=== PATIENT | female | born 1990 | race Caucasian/White ===

== ENCOUNTER → 2017-02-25 | Outpatient (CLI) | payer OTHER ==
--- NOTE | 2017-02-25 16:24 | US ---
EXAMINATION TYPE: US pelvic complete DATE OF EXAM: 02/25/2017 4:08 PM COMPARISON: NONE CLINICAL HISTORY: N93.8 Dysfunctional uterine bleeding. Abnormal vaginal bleeding since control implant replacement in November TECHNIQUE: Transabdominal (TA) Date of LMP: 02/19/2017 EXAM MEASUREMENTS: Uterus: 7.3 x 2.3 x 3.5 cm Endometrial Stripe: 0.3 cm Right Ovary: 2.6 x 1.7 x 2.2 cm Left Ovary: 2.3 x 1.2 x 2.5 cm 1. Uterus: Anteverted wnl 2. Endometrium: wnl 3. Right Ovary: wnl, dominant follicle 4. Left Ovary: wnl 5. Bilateral Adnexa: wnl 6. Posterior cul-de-sac: wnl No abnormality visualized within pelvis IMPRESSION: No significant abnormality seen.
== END | disposition home or self-care (01) ==
LOC: RADUSMAIN 15:52
PROVIDERS: ATTEND Obstetrics & Gynecology
DX: N93.8 Other specified abnormal uterine and vaginal bleeding (principal)
CPT/HCPCS: 76856

== ENCOUNTER 2019-12-15 07:56 | Emergency (ER) | payer OTHER ==
[2019-12-15 08:01] VITALS: BP 120/83; PULSE 88; RESP 16; TEMP 98.1
--- NOTE | 2019-12-15 08:21 | ED ---
General Adult HPI - General Chief complaint: Recheck/Abnormal Lab/Rx Stated complaint: Urinary issues Time Seen by Provider: 12/15/19 08:00 Source: patient, RN notes reviewed Mode of arrival: ambulatory Limitations: no limitations - History of Present Illness Initial comments: This is a 29-year-old female with a benign past history states she's been having dysuria and pain with urination since coming back from [place] earlier this winter. She states she's been on several courses of antibiotics including Augmentin and Cipro and Bactrim she's also been on Diflucan twice she states she's had about one week of relief since that time. She was seen by her [employer] and had a complete workup which was negative for evidence of STDs or pathology. She has been on different operations including pyridium without much relief. She's had no fevers chills nausea vomiting sweats she did recently have an implant removed and she had her are trying to get . Last menstrual period was approximately a month ago. She has no other complaints no other modifying factors at this time. She does say she has a family history of kidney stones as well as kidney cancer. No room hematological or connective tissue disorders. - Related Data Previous Rx's Medication Instructions Recorded Ibuprofen 800 mg PO Q6HR PRN #20 tablet 12/15/19 Phenazopyridine [Pyridium] 200 mg PO TID #15 tablet 12/15/19 Tamsulosin [Flomax] 0.4 mg PO DAILY #5 cap 12/15/19 Allergies Allergy/AdvReac Type Severity Reaction Status Date / Time citalopram [From Celexa] Allergy Rash/Hives Verified 12/15/19 08:02 Review of Systems ROS Statement: Those systems with pertinent positive or pertinent negative responses have been documented in the HPI. ROS Other: All systems not noted in ROS Statement are negative. Past Medical History Past Medical History: No Reported History History of Any Multi-Drug Resistant Organisms: None Reported Past Surgical History: Orthopedic Surgery Past Psychological History: No Psychological Hx Reported Smoking Status: Never smoker Past Alcohol Use History: Occasional Past Drug Use History: None Reported General Exam - General Exam Comments Initial Comments: This is a well-developed well-nourished awake alert oriented 2 female Limitations: no limitations General appearance: alert, in no apparent distress Head exam: Present: atraumatic, normocephalic, normal inspection Eye exam: Present: normal appearance, PERRL, EOMI. Absent: scleral icterus, conjunctival injection, periorbital swelling ENT exam: Present: normal exam, mucous membranes moist Neck exam: Present: normal inspection. Absent: tenderness, meningismus, lymphadenopathy Respiratory exam: Present: normal lung sounds bilaterally. Absent: respiratory distress, wheezes, rales, rhonchi, stridor Cardiovascular Exam: Present: regular rate, normal rhythm, normal heart sounds. Absent: systolic murmur, diastolic murmur, rubs, gallop, clicks GI/Abdominal exam: Present: soft, tenderness (Mild suprapubic tenderness palpation no guarding rebound masses or bruits), normal bowel sounds. Absent: distended, guarding, rebound, rigid Rectal exam: Present: deferred External exam: Present: other (The first this time secondary to the recent gynecological workup) Extremities exam: Present: normal inspection, full ROM, normal capillary refill. Absent: tenderness, pedal edema, joint swelling, calf tenderness Back exam: Present: normal inspection Neurological exam: Present: alert, oriented X3, CN II-XII intact Psychiatric exam: Present: normal affect, normal mood Skin exam: Present: warm, dry, intact, normal color. Absent: rash Course Vital Signs 12/15/19 07:57 Temperature 98.1 F Pulse Rate 88 Respiratory 16 Rate Blood Pressure 120/83 O2 Sat by Pulse 99 Oximetry Medical Decision Making - Medical Decision Making I did discuss the findings with the patient and her mother was present. Patient does have a upcoming appointment with Dr. King. In light of the findings on the CAT scan of the continued symptoms initially placed on NSAIDs as well as Pyridium and Flomax. - Lab Data Lab Results 12/15/19 12/15/19 Range/Units 08:10 08:10 Urine Color Light Yellow Urine Appearance Clear (Clear) Urine pH 6.0 (5.0-8.0) Ur Specific Wendel 1.009 (1.001-1.035) Urine Protein Negative (Negative) Urine Glucose (UA) Negative (Negative) Urine Ketones Negative (Negative) Urine Blood Negative (Negative) Urine Nitrite Negative (Negative) Urine Bilirubin Negative (Negative) Urine Urobilinogen <2.0 (<2.0) mg/dL Ur Leukocyte Esterase Negative (Negative) Urine HCG, Qual Not Detected (Not Detectd) - Radiology Data Radiology results: report reviewed (I did review the imaging and report or is evidence of a mild dilatation of left urinary collecting system. The findings may be consistent with a past ureteral stone. No other overt abnormality seen please see the complete report), image reviewed Disposition Clinical Impression: Dysuria Disposition: HOME SELF-CARE Condition: Good Additional Instructions: Medications sent here preferred pharmacy Prescriptions: Tamsulosin [Flomax] 0.4 mg PO DAILY #5 cap Ibuprofen 800 mg PO Q6HR PRN #20 tablet PRN Reason: Pain Phenazopyridine [Pyridium] 200 mg PO TID #15 tablet Is patient prescribed a controlled substance at d/c from ED?: No Referrals: Juan J Moreno MD [Primary Care Provider] - 1-2 days Michael King MD [STAFF PHYSICIAN] - 1-2 days
[2019-12-15 08:47] LABS: Appearance,Urine Clear (Clear); Bilirubin,Urine Negative (Negative); Blood,Urine Negative (Negative); Color,Urine Light Yellow; Glucose,Urine (UA) Negative (Negative); Ketones,Urine Negative (Negative); Leukocyte Esterase,Urine Negative (Negative); Nitrite,Urine Negative (Negative); Protein,Urine Negative (Negative); Specific Gravity,Urine 1.009 (1.001-1.035); Urobilinogen,Urine <2.0 mg/dL (<2.0)
--- NOTE | 2019-12-15 09:17 | CT ---
EXAMINATION TYPE: CT abdomen pelvis wo con DATE OF EXAM: 12/15/2019 HISTORY: urethral pain, and frequency/urgency of urination. Dysuria. Kidney stone suspected. CT DLP: 617.2 mGycm. Automated Exposure Control for Dose Reduction was Utilized. TECHNIQUE: CT scan of the abdomen and pelvis is performed without oral or IV contrast. COMPARISON: NONE FINDINGS: Within the limitations of a non-contrast study, the following observations are made. LUNG BASES: No significant abnormality is appreciated. LIVER/GB: No significant abnormality is appreciated. PANCREAS: Pancreas overall somewhat bulky without surrounding inflammatory change presumed normal lauryn iant. IgG4 related disease could be considered in the appropriate clinical setting. Correlate clinica lly. SPLEEN: No significant abnormality is seen. ADRENALS: Tiny nodularity centrally left adrenal gland favors benign lipid rich adenoma is of low den sity. KIDNEYS: Asymmetric mild right-sided pyelocaliectasis and at least proximal to mid mild right-sided h ydroureter without obstructing calculus or distal hydroureter clearly seen. No intraluminal calculus in bladder. No renal calculi identified bilaterally. No left-sided hydronephrosis. BOWEL: Normal-appearing appendix is seen ascending from the cecum which is slightly low-lying in the right upper pelvis. Suboptimal evaluation bowel without enteric contrast. Stomach poorly distended an d thus suboptimally evaluated. No suspicious small or large bowel dilatation is seen. Mild wall thick ening in the left lower quadrant near junction of left and sigmoid colon presumed product of poor dis tention, mild uncomplicated colitis felt less likely but not entirely excluded. GENITAL ORGANS: Anteverted uterus projects to left of midline. Some prominence of the lower uterine s egment/cervix axial image 124 noted should be correlated clinically with pelvic exam and possibly Pap smear. Both ovaries normal in size and the adnexa. LYMPH NODES: No greater than 1cm abdominal or pelvic lymph nodes are appreciated. A few prominent but subcentimeter lymph nodes throughout the left mid abdominal mesentery. OSSEOUS STRUCTURES: Moderate this space narrowing with vacuum disc phenomenon L5-S1 level. Posterior disc herniation seen at this level sagittal image 63. OTHER: No significant additional abnormality is seen. IMPRESSION: 1. Asymmetric mild right-sided hydronephrosis without obstructing calculus identified. Consider recen tly passed calculus as possible etiology. No definitive acute finding otherwise seen. Other findings as noted above.
[2019-12-15] MEDS ORDERED: IBUPROFEN 800 MG TAB PO STA (09:53)
[2019-12-15] MEDS ORDERED: TAMSULOSIN 0.4 MG CAP.ER.24H PO STA (09:53)
[2019-12-15] MEDS ORDERED: PHENAZOPYRIDINE 200 MG TAB PO STA (09:54)
== END 2019-12-15 10:23 | disposition home or self-care (01) ==
LOC: EC 07:56
DX: R30.0 Dysuria (principal); Z88.8 Allergy status to other drugs, medicaments and biological substances; Z80.51 Family history of malignant neoplasm of kidney; Z84.1 Family history of disorders of kidney and ureter
CPT/HCPCS: 74176; 81003; 81025; 99284

== ENCOUNTER 2019-12-29 13:05 | Emergency (ER) | payer OTHER ==
[2019-12-29 13:15] VITALS: RESP 18
[2019-12-29] MEDS ORDERED: METOCLOPRAMIDE 5 MG/ML 2 ML VIAL IVP STA (13:48)
[2019-12-29] MEDS ORDERED: diphenhydrAMINE 50 MG/ML 1 ML VIAL IVP STA (13:48)
[2019-12-29] MEDS ORDERED: DEXAMETHASONE SOD PHOSPHATE 10 MG/ML 1 ML VIAL IV STA (13:48)
[2019-12-29] MEDS ORDERED: MAGNESIUM SULFATE-D5W PMX 1 GM in DEXTROSE/WATER 1 100ML.BAG IVPB ONE (13:49)
[2019-12-29] MEDS ORDERED: ACETAMINOPHEN TAB 500 MG TAB PO STA (13:49)
[2019-12-29] MEDS ORDERED: KETOROLAC 30 MG/ML 1 ML VIAL IVP STA (13:49)
[2019-12-29 14:12] LABS: Basophils % (A) 1 %; Eosinophils % (A) 0 %; HCT 41.1 % (34.0-46.0); HGB 13.5 gm/dL (11.4-16.0); Lymphocytes # (A) 0.3 k/uL (1.0-4.8); Lymphocytes % (A) 4 %; MCH 28.4 pg (25.0-35.0); MCHC 32.9 g/dL (31.0-37.0); MCV 86.2 fL (80.0-100.0); Mean Platelet Volume 7.1; Monocytes # (A) 0.2 k/uL (0-1.0); Monocytes % (A) 3 %; Neutrophils # (A) 5.9 k/uL (1.3-7.7); Neutrophils % (A) 91 %; Platelet Count 200 k/uL (150-450); RBC 4.77 m/uL (3.80-5.40); RDW 12.9 % (11.5-15.5); WBC 6.5 k/uL (3.8-10.6)
--- NOTE | 2019-12-29 14:12 | ED ---
General Adult HPI - General Chief complaint: Headache Stated complaint: headache Time Seen by Provider: 12/29/19 13:10 Source: patient Mode of arrival: ambulatory Limitations: no limitations - History of Present Illness Initial comments: The patient is a 29-year-old female with past medical history of interstitial cystitis who recently had a cystoscopy on Friday presents the emergency room with reported fevers and headache. She states that she has had a cystoscopy on Friday by Dr. King. Denies that biopsies were taken. Reports that last night she began having fevers headache. Admits photophobia and neck stiffness. Denies cough or hemoptysis. States that she has taken 8 tablets of Motrin without improvement in her fevers. He was last taken around 2 AM this morning. She denies any chest pain or shortness of breath. No abdominal pain. Admits to burning with urination however states this is chronic for her. Denies hematuria or definitive voiding. Denies diarrhea or constipation. No sick contacts outside of the hospital with similar symptoms. Denies head trauma. There are no other alleviating, precipitating or modifying factors - Related Data Previous Rx's Medication Instructions Recorded Ibuprofen 800 mg PO Q6HR PRN #20 tablet 12/15/19 Phenazopyridine [Pyridium] 200 mg PO TID #15 tablet 12/15/19 Tamsulosin [Flomax] 0.4 mg PO DAILY #5 cap 12/15/19 Cephalexin [Keflex] 500 mg PO Q12HR #14 cap 12/29/19 Allergies Allergy/AdvReac Type Severity Reaction Status Date / Time citalopram [From Celexa] Allergy Rash/Hives Verified 12/29/19 13:10 Review of Systems ROS Statement: Those systems with pertinent positive or pertinent negative responses have been documented in the HPI. ROS Other: All systems not noted in ROS Statement are negative. Past Medical History Past Medical History: No Reported History History of Any Multi-Drug Resistant Organisms: None Reported Past Surgical History: Orthopedic Surgery Additional Past Surgical History / Comment(s): cystoscopy Past Psychological History: No Psychological Hx Reported Smoking Status: Never smoker Past Alcohol Use History: Occasional Past Drug Use History: None Reported General Exam Limitations: no limitations General appearance: alert, in no apparent distress Head exam: Present: atraumatic, normocephalic, normal inspection Eye exam: Present: normal appearance, PERRL, EOMI. Absent: scleral icterus, conjunctival injection, periorbital swelling ENT exam: Present: normal exam, mucous membranes moist Neck exam: Present: normal inspection, other (negative kernigs, negative brudzinski). Absent: tenderness, meningismus, lymphadenopathy Respiratory exam: Present: normal lung sounds bilaterally. Absent: respiratory distress, wheezes, rales, rhonchi, stridor Cardiovascular Exam: Present: normal rhythm, tachycardia, normal heart sounds. Absent: systolic murmur, diastolic murmur, rubs, gallop, clicks GI/Abdominal exam: Present: soft, normal bowel sounds. Absent: distended, tenderness, guarding, rebound, rigid Extremities exam: Present: normal inspection, full ROM, normal capillary refill. Absent: tenderness, pedal edema, joint swelling, calf tenderness Back exam: Present: normal inspection Neurological exam: Present: alert, oriented X3, CN II-XII intact Psychiatric exam: Present: normal affect, normal mood Skin exam: Present: warm, dry, intact, normal color. Absent: rash Course Vital Signs 12/29/19 12/29/19 12/29/19 13:10 13:25 14:18 Temperature 100.2 F H 101.5 F H Pulse Rate 120 H 101 H Respiratory 18 18 Rate Blood Pressure 122/79 128/80 O2 Sat by Pulse 97 96 Oximetry 12/29/19 12/29/19 15:05 15:37 Temperature 98.7 F 98.4 F Pulse Rate 97 89 Respiratory 18 18 Rate Blood Pressure 124/87 114/73 O2 Sat by Pulse 96 98 Oximetry Medical Decision Making - Medical Decision Making Upon arrival the patient was placed into room 19. A thorough history and physic al exam was performed. Peripheral IV was established. The patient was given 15 g of Toradol, 1 g of magnesium, 50 g of Benadryl, 10 mg Reglan and 10 mg of Decadron. Laboratory studies were conducted. The patient for CT of her brain as well as a chest x-ray. White blood cell count is normal at 6.5. Sodium 135. Glucose 115. Lactic acid 1.4. UA shows trace blood, 1+ bilirubin, trace leukocyte Estrace, 16 red blood cells, 6 white blood cells, occasional bacteria and occasional mucous. Influenza A and B are negative. Chest x-ray demonstrates no acute bony process. CT of the brain demonstrates no acute findings. The patient is reevaluated and she does have marked improvement in her vital signs. The patient also has improvement in her headache. I discussed the diagnosis, differential and treatment options. I did give the patient a dose of Rocephin. I did recommend a lumbar puncture as she does present with headache and fever. The patient refused stating she wanted to be discharged on antibiotics to see if her symptoms improve with clearance of her urinary tract infection. The risks and benefits were discussed with the patient. She is of sound mind and capable of making her own decisions. is at bedside and agrees to her decision. I did stress to the patient that she needs to return to the emergency room for any new or worsening symptoms. She is to take the antibiotic as directed. Use Motrin and Tylenol every 4 hours for fever. If the patient has worsening of her symptoms she needs to return for either inpatient treatment of her urinary tract infection or for evaluation of meningitis. The patient understood this. Otherwise she needs to follow up with her primary care doctor in 2-4 days. The patient understood this and she was discharged home in stable condition - Lab Data Result diagrams: 12/29/19 13:52 12/29/19 13:52 Lab Results 12/29/19 12/29/19 12/29/19 Range/Units 13:28 13:52 13:52 WBC 6.5 (3.8-10.6) k/uL RBC 4.77 (3.80-5.40) m/uL Hgb 13.5 (11.4-16.0) gm/dL Hct 41.1 (34.0-46.0) % MCV 86.2 (80.0-100.0) fL MCH 28.4 (25.0-35.0) pg MCHC 32.9 (31.0-37.0) g/dL RDW 12.9 (11.5-15.5) % Plt Count 200 (150-450) k/uL Neutrophils % 91 % Lymphocytes % 4 % Monocytes % 3 % Eosinophils % 0 % Basophils % 1 % Neutrophils # 5.9 (1.3-7.7) k/uL Lymphocytes # 0.3 L (1.0-4.8) k/uL Monocytes # 0.2 (0-1.0) k/uL Eosinophils # 0.0 (0-0.7) k/uL Basophils # 0.0 (0-0.2) k/uL Sodium (137-145) mmol/L Potassium (3.5-5.1) mmol/L Chloride (98-107) mmol/L Carbon Dioxide (22-30) mmol/L Anion Gap mmol/L BUN (7-17) mg/dL Creatinine (0.52-1.04) mg/dL Est GFR (CKD-EPI)AfAm (>60 ml/min/1.73 sqM) Est GFR (CKD-EPI)NonAf (>60 ml/min/1.73 sqM) Glucose (74-99) mg/dL Plasma Lactic Acid Moiz (0.7-2.0) mmol/L Calcium (8.4-10.2) mg/dL Total Bilirubin (0.2-1.3) mg/dL AST (14-36) U/L ALT (4-34) U/L Alkaline Phosphatase (38-126) U/L Total Protein (6.3-8.2) g/dL Albumin (3.5-5.0) g/dL Urine Color Dark Dukes Urine Appearance Cloudy H (Clear) Urine pH 6.0 (5.0-8.0) Ur Specific Mansfield 1.035 (1.001-1.035) Urine Protein 1+ H (Negative) Urine Glucose (UA) Negative (Negative) Urine Ketones Negative (Negative) Urine Blood Trace H (Negative) Urine Nitrite Negative (Negative) Urine Bilirubin 1+ H (Negative) Urine Urobilinogen 2.0 (<2.0) mg/dL Ur Leukocyte Esterase Trace H (Negative) Urine RBC 16 H (0-5) /hpf Urine WBC 6 H (0-5) /hpf Ur Squamous Epith Cells 10 H (0-4) /hpf Urine Bacteria Occasional H (None) /hpf Urine Mucus Occasional H (None) /hpf Urine HCG, Qual (Not Detectd) Influenza Type A RNA Not Detected (Not Detectd) Influenza Type B (PCR) Not Detected (Not Detectd) 12/29/19 12/29/19 12/29/19 Range/Units 13:52 13:52 13:52 WBC (3.8-10.6) k/uL RBC (3.80-5.40) m/uL Hgb (11.4-16.0) gm/dL Hct (34.0-46.0) % MCV (80.0-100.0) fL MCH (25.0-35.0) pg MCHC (31.0-37.0) g/dL RDW (11.5-15.5) % Plt Count (150-450) k/uL Neutrophils % % Lymphocytes % % Monocytes % % Eosinophils % % Basophils % % Neutrophils # (1.3-7.7) k/uL Lymphocytes # (1.0-4.8) k/uL Monocytes # (0-1.0) k/uL Eosinophils # (0-0.7) k/uL Basophils # (0-0.2) k/uL Sodium 135 L (137-145) mmol/L Potassium 3.8 (3.5-5.1) mmol/L Chloride 105 (98-107) mmol/L Carbon Dioxide 24 (22-30) mmol/L Anion Gap 6 mmol/L BUN 15 (7-17) mg/dL Creatinine 0.87 (0.52-1.04) mg/dL Est GFR (CKD-EPI)AfAm >90 (>60 ml/min/1.73 sqM) Est GFR (CKD-EPI)NonAf 90 (>60 ml/min/1.73 sqM) Glucose 115 H (74-99) mg/dL Plasma Lactic Acid Moiz 1.4 (0.7-2.0) mmol/L Calcium 8.5 (8.4-10.2) mg/dL Total Bilirubin 0.5 (0.2-1.3) mg/dL AST 27 (14-36) U/L ALT 18 (4-34) U/L Alkaline Phosphatase 55 (38-126) U/L Total Protein 6.3 (6.3-8.2) g/dL Albumin 3.4 L (3.5-5.0) g/dL Urine Color Urine Appearance (Clear) Urine pH (5.0-8.0) Ur Specific [place] (1.001-1.035) Urine Protein (Negative) Urine Glucose (UA) (Negative) Urine Ketones (Negative) Urine Blood (Negative) Urine Nitrite (Negative) Urine Bilirubin (Negative) Urine Urobilinogen (<2.0) mg/dL Ur Leukocyte Esterase (Negative) Urine RBC (0-5) /hpf Urine WBC (0-5) /hpf Ur Squamous Epith Cells (0-4) /hpf Urine Bacteria (None) /hpf Urine Mucus (None) /hpf Urine HCG, Qual Not Detected (Not Detectd) Influenza Type A RNA (Not Detectd) Influenza Type B (PCR) (Not Detectd) Disposition Clinical Impression: Fever, Headache, S/P cystoscopy Disposition: HOME SELF-CARE Condition: Stable Instructions (If sedation given, give patient instructions): Urinary Tract Infection in Women (ED) Additional Instructions: Please follow-up with your PCP in 2-4 days. Take Motrin and Tylenol alternating every 4 hours for fever control. Increase fluid intake. Return to the emergency room for any new or worsening symptoms Prescriptions: Cephalexin [Keflex] 500 mg PO Q12HR #14 cap Is patient prescribed a controlled substance at d/c from ED?: No Referrals: Juan J Moreno MD [Primary Care Provider] - 1-2 days Time of Disposition: 15:24
[2019-12-29 14:16] LABS: Appearance,Urine Cloudy (Clear); Bacteria,Urine Occasional /hpf; Bilirubin,Urine 1+ (Negative); Blood,Urine Trace (Negative); Color,Urine Dark Orange; Glucose,Urine (UA) Negative (Negative); Ketones,Urine Negative (Negative); Leukocyte Esterase,Urine Trace (Negative); Mucus,Urine Occasional /hpf; Nitrite,Urine Negative (Negative); Protein,Urine 1+ (Negative); RBC,Urine 16 /hpf (0-5); Specific Gravity,Urine 1.035 (1.001-1.035); Squamous Epithelial Cell,Urine 10 /hpf (0-4); WBC,Urine 6 /hpf (0-5)
[2019-12-29 14:25] LABS: ALT 18 U/L (4-34); AST 27 U/L (14-36); African American GFR (CKD) >90 (>60 ml/min/1.73 sqM); Albumin 3.4 g/dL (3.5-5.0); Alkaline Phosphatase 55 U/L (38-126); Anion Gap 6 mmol/L; Blood Urea Nitrogen 15 mg/dL (7-17); Calcium 8.5 mg/dL (8.4-10.2); Carbon Dioxide 24 mmol/L (22-30); Chloride 105 mmol/L (98-107); Glucose 115 mg/dL (74-99); Non-African American GFR(CKD) 90 (>60 ml/min/1.73 sqM); Potassium 3.8 mmol/L (3.5-5.1); Sodium 135 mmol/L (137-145); Total Bilirubin 0.5 mg/dL (0.2-1.3); Total Protein 6.3 g/dL (6.3-8.2)
[2019-12-29] MEDS ORDERED: cefTRIAXone IN SWFI 1,000 MG/10 ML SYRINGE IVP STA (14:30)
--- NOTE | 2019-12-29 14:51 | CT ---
EXAMINATION TYPE: CT brain wo con DATE OF EXAM: 12/29/2019 COMPARISON: None. HISTORY: Headache and fever. CT DLP: 1099.4 mGycm. Automated Exposure Control for Dose Reduction was Utilized. TECHNIQUE: CT scan of the head is performed without contrast. FINDINGS: There is no acute intracranial hemorrhage, mass effect, or midline shift identified. The ventricles and sulci are within normal limits in size. Rajput-white matter differentiation is maintai syl. Tiny eccentric fluid or mucosal thickening right sphenoid sinus otherwise paranasal sinuses are clear, latter is favored. Globes are intact bilaterally. IMPRESSION: Unremarkable study.
--- NOTE | 2019-12-29 14:52 | XR ---
EXAMINATION TYPE: XR chest 2V DATE OF EXAM: 12/29/2019 COMPARISON: NONE HISTORY: Headache and fever. TECHNIQUE: Frontal and lateral views of the chest are obtained. FINDINGS: There is no focal air space opacity, pleural effusion, or pneumothorax seen. The cardiac silhouette size is within normal limits. Underlying levoconvex scoliosis or positioning centered uppe r thoracic spine. IMPRESSION: No acute cardiopulmonary process.
[2019-12-29 15:44] VITALS: BP 114/73; PULSE 89; TEMP 98.4
== END 2019-12-29 15:37 | disposition home or self-care (01) ==
LOC: EC 13:05
DX: R51 Headache (principal); R50.9 Fever, unspecified; Z98.890 Other specified postprocedural states; N39.0 Urinary tract infection, site not specified; R00.0 Tachycardia, unspecified; H53.149 Visual discomfort, unspecified; Z88.8 Allergy status to other drugs, medicaments and biological substances; Z87.448 Personal history of other diseases of urinary system; Z53.29 Procedure and treatment not carried out because of patient's decision for other reasons
CPT/HCPCS: 99284; 96365; 96375 ×5; 36415; 80053; 83605; 85025; 81001; 81025; 87040; 87502; 71046; 70450; J1200; J1100; J2765; J0696; J1885; J3475

== ENCOUNTER → 2020-04-24 | Outpatient (CLI) | payer OTHER ==
[~2020-04-24] MED LIST: ONDANSETRON 4 MG/2 ML VIAL ONE
[2020-04-24 11:24] LABS: Basophils % (A) 0 %; Eosinophils # (A) 0.1 k/uL (0-0.7); Eosinophils % (A) 1 %; HCT 41.5 % (34.0-46.0); HGB 13.2 gm/dL (11.4-16.0); Lymphocytes # (A) 1.1 k/uL (1.0-4.8); Lymphocytes % (A) 15 %; MCH 27.7 pg (25.0-35.0); MCHC 31.8 g/dL (31.0-37.0); MCV 87.3 fL (80.0-100.0); Mean Platelet Volume 7.2; Monocytes # (A) 0.3 k/uL (0-1.0); Monocytes % (A) 5 %; Neutrophils # (A) 5.5 k/uL (1.3-7.7); Neutrophils % (A) 78 %; Platelet Count 264 k/uL (150-450); RBC 4.75 m/uL (3.80-5.40); RDW 13.7 % (11.5-15.5); WBC 7.1 k/uL (3.8-10.6)
== END | disposition home or self-care (01) ==
LOC: LABPAT 10:17
PROVIDERS: ATTEND Obstetrics & Gynecology
DX: Z01.818 Encounter for other preprocedural examination (principal)
CPT/HCPCS: 36415; 85025

== ENCOUNTER 2020-04-25 06:52 | Day surgery (SDC) | payer OTHER ==
[2020-04-24 12:07] VITALS: BMI 26.6
[~2020-04-25 06:52] MED LIST changes: +DEXAMETHASONE SOD PHOSPHATE 10 MG/ML 1 ML VIAL IV ONE; +HYDROmorphone 0.5 MG/0.5 ML SYRINGE IVP PRN; +LACTATED RINGERS 1,000 ML IV SCH; +MIDAZOLAM 2 MG/2 ML VIAL IV PRN; +ONDANSETRON 4 MG/2 ML VIAL IVP ONE; -ONDANSETRON 4 MG/2 ML VIAL ONE; +Pre Op ABX Message 1 EACH MISC MISCELLANE ONE; +SCOPOLAMINE 1.5MG/72HR PATCH TRANSDERM ONE
--- NOTE | 2020-04-25 07:11 | P.HPOB ---
History of Present Illness H&P Date: 04/25/20 Chief Complaint: Blighted ovum 29-year-old presents for suction D&C. She had 2 ultrasounds in my office that showed gestational sac with no pole in the gestational sac is not growing. Her beta-hCG is no longer rising. She's not having any bleeding or cramping. Review of Systems All systems: negative Constitutional: Denies chills, Denies fever Eyes: denies blurred vision, denies pain Ears, nose, mouth and throat: Denies headache, Denies sore throat Cardiovascular: Denies chest pain, Denies shortness of breath Respiratory: Denies cough Gastrointestinal: Denies abdominal pain, Denies diarrhea, Denies nausea, Denies vomiting Genitourinary: Denies dysuria, Denies hematuria Musculoskeletal: Denies myalgias Integumentary: Denies pruritus, Denies rash Neurological: Denies numbness, Denies weakness Psychiatric: Denies anxiety, Denies depression Endocrine: Denies fatigue, Denies weight change Past Medical History Past Medical History: No Reported History History of Any Multi-Drug Resistant Organisms: None Reported Past Surgical History: Orthopedic Surgery Additional Past Surgical History / Comment(s): Cystoscopy. Lt knee arthroscopy Past Anesthesia/Blood Transfusion Reactions: No Reported Reaction Past Psychological History: No Psychological Hx Reported Past Alcohol Use History: Rare Additional Past Alcohol Use History / Comment(s): Smoked on/off since age 17, < 1/2 ppd, quit 09/2019 Past Drug Use History: None Reported - Past Family History Mother Family Medical History: No Reported History Medications and Allergies Home Medications Medication Instructions Recorded Confirmed Type Pnv No.95/Ferrous Fum/Folic AC 1 each PO DAILY 04/24/20 04/25/20 History [ Multivitamin Tablet] Allergies Allergy/AdvReac Type Severity Reaction Status Date / Time citalopram [From Celexa] Allergy Rash/Hives Verified 04/24/20 11:51 Exam Osteopathic Statement: *. No significant issues noted on an osteopathic structural exam other than those noted in the History and Physical/Consult. Heart: Regular rate and rhythm Lungs: Clear to auscultation bilaterally Abdomen: Soft, nontender Extremities: Negative Homans sign Assessment and Plan (1) Blighted ovum Current Visit: Yes Status: Acute Code(s): O02.0 - BLIGHTED OVUM AND NONHYDATIDIFORM MOLE SNOMED Code(s): 54473785 Plan: 1. Suction D&C
[2020-04-25 07:24] LABS: Appearance,Urine Clear (Clear); Bilirubin,Urine Negative (Negative); Blood,Urine Negative (Negative); Color,Urine Yellow; Glucose,Urine (UA) Negative (Negative); Ketones,Urine Negative (Negative); Leukocyte Esterase,Urine Negative (Negative); Nitrite,Urine Negative (Negative); Protein,Urine Negative (Negative); Specific Gravity,Urine 1.024 (1.001-1.035); Urobilinogen,Urine <2.0 mg/dL (<2.0)
[2020-04-25] MEDS ORDERED: MIDAZOLAM 2 MG/2 ML VIAL IVP ONE (08:11)
[2020-04-25] MEDS ORDERED: KETOROLAC 30 MG/ML 1 ML VIAL ONE (08:11)
[2020-04-25] MEDS ORDERED: MIDAZOLAM 2 MG/2 ML VIAL ONE (08:11)
[2020-04-25] MEDS ORDERED: LIDOCAINE 1% INJ 10MG/ML (20 ML MDV) ONE (08:11)
[2020-04-25] MEDS ORDERED: fentaNYL (PF) 50 MCG/ML 2 ML AMP ONE (08:11)
[2020-04-25] MEDS ORDERED: PROPOFOL 10 MG/ML 20 ML VIAL IV ONE (08:11)
--- NOTE | 2020-04-25 08:39 | P.OP ---
Date of Procedure: 04/25/20 Preoperative Diagnosis: 1. Blighted ovum Postoperative Diagnosis: 1. Blighted ovum Procedure(s) Performed: Suction D&C Anesthesia: MAC Surgeon: Irasema Garcia Estimated Blood Loss (ml): 100 IV fluids (ml): 300 Urine output (ml): 100 Pathology: other (Uterine contents) Condition: stable Disposition: PACU Operative Findings: Minimal amount of tissue Description of Procedure: Patient is taken the operating room and general anesthesia was obtained without difficulty. She is prepped and draped in normal sterile fashion dorsal lithotomy position, legs placed in candycane stirrups. Bladder was drained of all urine. Weighted speculum placed in the vagina and the anterior lip the cervix was grasped with single-tooth tenaculum. The uterus is dilated to #9 Hegar dilator. The #9 curved suction curet was introduced into the uterus and passed several times to remove tissue and blood. Sharp curet was gently used to ensure all tissue had been removed. The suction curet was passed a few more times. Hemostasis was achieved. Patient to our procedure well, sponge and instrument counts correct 2. She was taken to recovery in stable condition.
[2020-04-25 08:56] VITALS: TEMP 96.9
[2020-04-25 09:02] VITALS: RESP 16
[2020-04-25] MEDS ORDERED: LACTATED RINGERS 1,000 ML IV ONE (09:17)
[2020-04-25 10:05] VITALS: BP 100/70; PULSE 100
== END 2020-04-25 10:30 ==
LOC: OR 06:52
PROVIDERS: ATTEND Obstetrics & Gynecology
DX: O02.0 Blighted ovum and nonhydatidiform mole (principal); Z88.8 Allergy status to other drugs, medicaments and biological substances
CPT/HCPCS: 86900; 86901; 86850; 81003; 59820; J2250; J2405; J2001; J3010; J1885; J2704; 88305

== ENCOUNTER → 2020-06-21 | Outpatient (CLI) | payer OTHER | END | disposition home or self-care (01) | LOC: LABWHC1 12:07 | PROVIDERS: ATTEND Obstetrics & Gynecology | DX: Z34.80 Encounter for supervision of other normal pregnancy, unspecified trimester (principal) | CPT/HCPCS: 36415; 84702 ==

== ENCOUNTER → 2020-07-19 | Outpatient (CLI) | payer OTHER | END | disposition home or self-care (01) | LOC: LABWHC1 10:07 | PROVIDERS: ATTEND Obstetrics & Gynecology | DX: Z34.81 Encounter for supervision of other normal pregnancy, first trimester (principal); Z3A.00 Weeks of gestation of pregnancy not specified | CPT/HCPCS: 36415; 84702 ==

== ENCOUNTER → 2020-07-21 | Outpatient (CLI) | payer OTHER ==
--- NOTE | 2020-07-21 10:59 | US ---
EXAMINATION TYPE: Transabdominal DATE OF EXAM: 07/21/2020 10:53 AM COMPARISON: NONE CLINICAL HISTORY: O76. Abnormal or absent heart sounds. absent heart tones 07/18/20 at doctor's offi ce EXAM PERFORMED: Transvaginal (TV) and Transabdominal (TA) EXAM MEASUREMENTS: GESTATIONAL AGE / DATING Physician Established: Not yet established Dates by LMP: (7 weeks/6 days) EDC: 03/03/21 Dates by First Scan: no previous here Dates by Current Scan for: ( 6 weeks/2 days) EDC: 03/14/21 MATERNAL ANATOMY Uterus: 7.5 x 4.6 x 5.9cm Right Ovary: 2.6 x 1.5 x 1.6cm Left Ovary: 2.6 x 0.7 x 0.9cm Post CDS / Adnexa: appears wnl Presence of free fluid: no Presence of corpus luteal cyst: yes, complex area right ovary = 2.1 x 1.1 x 1.0cm GESTATION / SURVEY CRL: 0.5cm (6 weeks/2 days) Yolk Sac (normal less than 6mm): 0.3cm Heart Rate: no heart tones at this time IUP: Date of LMP: 05/27/20 Beta HcG (if available): Not available at this time Intrauterine gestation is seen as gestational sac a yolk sac identified. pole is present. Mean crown-rump length 0.5 cm. heart tones cannot be detected. No free fluid in pelvic cul-de-sac. Both ovaries seen. No suspicious extra ovarian adnexal masses. Probable corpus luteal cyst right ovar y. IMPRESSION: As above. Due to small crown-rump length findings may reflect too early to visualize feta l heart tones versus intrauterine demise. Short-term beta-hCG and ultrasound follow-up should b e considered based on clinical correlation.
== END | disposition home or self-care (01) ==
LOC: RADUSWWP 10:05
PROVIDERS: ATTEND Obstetrics & Gynecology
DX: O76 Abnormality in fetal heart rate and rhythm complicating labor and delivery (principal)
CPT/HCPCS: 76801; 76817

== ENCOUNTER → 2020-07-27 | Outpatient (CLI) | payer OTHER ==
[2020-07-27 14:24] LABS: Basophils % (A) 0 %; Eosinophils # (A) 0.1 k/uL (0-0.7); Eosinophils % (A) 1 %; HGB 13.5 gm/dL (11.4-16.0); Lymphocytes # (A) 1.4 k/uL (1.0-4.8); Lymphocytes % (A) 15 %; MCH 28.3 pg (25.0-35.0); MCHC 32.1 g/dL (31.0-37.0); MCV 88.2 fL (80.0-100.0); Monocytes # (A) 0.4 k/uL (0-1.0); Monocytes % (A) 4 %; Neutrophils % (A) 79 %; Platelet Count 258 k/uL (150-450); RBC 4.76 m/uL (3.80-5.40); RDW 13.7 % (11.5-15.5); WBC 8.9 k/uL (3.8-10.6)
== END | disposition home or self-care (01) ==
LOC: LABPAT 12:49
PROVIDERS: ATTEND Obstetrics & Gynecology
DX: Z01.818 Encounter for other preprocedural examination (principal)
CPT/HCPCS: 36415; 85025

== ENCOUNTER → 2020-07-28 | Day surgery (SDC) | payer OTHER ==
[2020-07-27 08:42] VITALS: BMI 26.6
[~2020-07-28] MED LIST changes: +KETOROLAC 15 MG/ML 1 ML VIAL ONE; +LIDOCAINE 1% INJ 10MG/ML (20 ML MDV) ONE; +MIDAZOLAM 2 MG/2 ML VIAL ONE; +PROPOFOL 10 MG/ML 20 ML VIAL IV ONE; +fentaNYL (PF) 50 MCG/ML 2 ML AMP ONE
--- NOTE | 2020-07-28 07:11 | P.HPOB ---
History of Present Illness H&P Date: 07/28/20 Chief Complaint: Missed AB 30-year-old presents for suction D&C due to missed at around 6 weeks gestation. Review of Systems All systems: negative Constitutional: Denies chills, Denies fever Eyes: denies blurred vision, denies pain Ears, nose, mouth and throat: Denies headache, Denies sore throat Cardiovascular: Denies chest pain, Denies shortness of breath Respiratory: Denies cough Gastrointestinal: Denies abdominal pain, Denies diarrhea, Denies nausea, Denies vomiting Genitourinary: Denies dysuria, Denies hematuria Musculoskeletal: Denies myalgias Integumentary: Denies pruritus, Denies rash Neurological: Denies numbness, Denies weakness Psychiatric: Denies anxiety, Denies depression Endocrine: Denies fatigue, Denies weight change Past Medical History Past Medical History: No Reported History Additional Past Medical History / Comment(s): miscarriage currently, History of Any Multi-Drug Resistant Organisms: None Reported Past Surgical History: Orthopedic Surgery Additional Past Surgical History / Comment(s): Cystoscopy, Lt knee arthroscopy, D&C Past Anesthesia/Blood Transfusion Reactions: No Reported Reaction Smoking Status: Former smoker - Past Family History Mother Family Medical History: No Reported History Medications and Allergies Home Medications Medication Instructions Recorded Confirmed Type Pnv No.95/Ferrous Fum/Folic AC 1 each PO DAILY 04/24/20 07/27/20 History [ Multivitamin Tablet] Allergies Allergy/AdvReac Type Severity Reaction Status Date / Time citalopram [From Celexa] Allergy Rash/Hives Verified 07/27/20 08:37 sertraline [From Zoloft] Allergy Rash/Hives Verified 07/27/20 08:37 Exam Osteopathic Statement: *. No significant issues noted on an osteopathic structural exam other than those noted in the History and Physical/Consult. Heart: Regular rate and rhythm Lungs: Clear to auscultation bilaterally Abdomen: Soft, nontender Extremities: Negative Homans sign Assessment and Plan (1) Missed Current Visit: Yes Status: Acute Code(s): O02.1 - MISSED SNOMED Code(s): 92852700 Plan: 1. Suction D&C
[2020-07-28 08:41] VITALS: TEMP 97.6
--- NOTE | 2020-07-28 08:46 | P.OP ---
Date of Procedure: 07/28/20 Preoperative Diagnosis: 1. Missed Postoperative Diagnosis: 1. Missed Procedure(s) Performed: Suction D&C, specimen sent for chromosome analysis Anesthesia: MAC Surgeon: Irasema Garcia Estimated Blood Loss (ml): 100 IV fluids (ml): 200 Urine output (ml): 30 Pathology: other (Products of conception) Condition: stable Disposition: PACU Operative Findings: Moderate amount products of conception Description of Procedure: Patient taken the operating room general anesthesia was obtained without difficulty. She is prepped and draped in normal sterile fashion dorsal lithotomy position, legs placed in candycane stirrups. Bladder was drained of all urine. Weighted speculum place in vagina the anterior lip the cervix was grasped with single-tooth tenaculum. The cervix was dilated to #10 Hegar dilator. The #10 curved suction curet was introduced into the uterus and passed several times to remove blood and tissue. Sharp curet was gently used to ensure all tissue had been removed. Suction curet was passed one more time to ensure all tissue had been removed. Hemostasis was achieved. All instruments removed from the vagina. Patient tolerated procedure well, sponge and instrument count correct 2. She is taken to recovery in stable condition.
[2020-07-28 09:33] VITALS: RESP 17
[2020-07-28 09:55] VITALS: BP 98/62; PULSE 66
== END | disposition home or self-care (01) ==
LOC: OR 06:49
PROVIDERS: ATTEND Obstetrics & Gynecology
DX: O02.1 Missed abortion (principal); Z88.8 Allergy status to other drugs, medicaments and biological substances; Z98.890 Other specified postprocedural states; Z87.891 Personal history of nicotine dependence; Z98.811 Dental restoration status
CPT/HCPCS: 59820; 86900; 86901; 88305; 86850; J2250; J2405; J2001; J3010; J1885; J2704

== ENCOUNTER → 2021-03-20 | Outpatient (CLI) | payer OTHER | END | disposition home or self-care (01) | LOC: LABWHC1 12:28 | PROVIDERS: ATTEND Obstetrics & Gynecology | DX: N92.6 Irregular menstruation, unspecified (principal) | CPT/HCPCS: 36415; 84702 ==

== ENCOUNTER → 2021-03-22 | Outpatient (CLI) | payer OTHER | END | disposition home or self-care (01) | LOC: LABWHC1 11:17 | PROVIDERS: ATTEND Obstetrics & Gynecology | DX: N92.6 Irregular menstruation, unspecified (principal) | CPT/HCPCS: 36415; 84702 ==

== ENCOUNTER → 2021-03-29 | Outpatient (CLI) | payer OTHER | END | disposition home or self-care (01) | LOC: LABWHC1 11:33 | PROVIDERS: ATTEND Obstetrics & Gynecology | DX: N92.6 Irregular menstruation, unspecified (principal) | CPT/HCPCS: 36415; 84702 ==

== ENCOUNTER → 2021-04-03 | Outpatient (CLI) | payer OTHER | END | disposition home or self-care (01) | LOC: LABWHC1 11:45 | PROVIDERS: ATTEND Obstetrics & Gynecology | DX: N92.6 Irregular menstruation, unspecified (principal) | CPT/HCPCS: 36415; 84702 ==

== ENCOUNTER → 2021-04-05 | Outpatient (CLI) | payer OTHER ==
--- NOTE | 2021-04-06 07:09 | US ---
EXAMINATION TYPE: Transabdominal DATE OF EXAM: 04/05/2021 4:24 PM COMPARISON: NONE CLINICAL HISTORY: Z36 Confirm dates. Confirm dates EXAM PERFORMED: Transvaginal (TV) and Transabdominal (TA) EXAM MEASUREMENTS: GESTATIONAL AGE / DATING Physician Established: Not yet established Dates by LMP: (7 weeks/0 days) EDC: 11/22/2021 Dates by First Scan: No previous this is first scan Dates by Current Scan for: (7 weeks/0 days) EDC: 11/22/2021 MATERNAL ANATOMY Uterus: 7.2 x 4.1 x 5.0 cm Right Ovary: 2.0 x 1.1 x .9 cm Left Ovary: 3.0 x 2.3 x 2.1 cm Post CDS / Adnexa: wnl Presence of free fluid: no Presence of corpus luteal cyst: yes left Presence of subchorionic bleed: no GESTATION / SURVEY CRL: 0.9 cm (7 weeks/0 days) Yolk Sac (normal less than 6mm): 3 mm Heart Rate: 146 bpm Rhythm: Normal IUP: Viable IUP Beta HcG (if available): Not available at this time IMPRESSION: Single live intrauterine measuring approximately 7 weeks and 0 days by sonographic criteria .
== END | disposition home or self-care (01) ==
LOC: RADUSWWP 15:57
PROVIDERS: ATTEND Obstetrics & Gynecology
DX: Z36.89 Encounter for other specified antenatal screening (principal); Z3A.01 Less than 8 weeks gestation of pregnancy
CPT/HCPCS: 76801; 76817

== ENCOUNTER 2021-08-15 16:27 | Observation (INO) | payer OTHER ==
--- NOTE | 2021-08-15 17:35 | P.HPOB ---
History of Present Illness H&P Date: 08/15/21 Chief Complaint: Intrauterine 26 weeks: Vaginal bleeding: Placenta previa Saran is a 31-year-old at 25 days 6 days gestation who was at work earlier today and felt like she had voided but when she looked down she was having vaginal bleeding. She had an ultrasound on August 02 with suspected posterior placenta previa there was not great visualization over the cervix to be able to save it was complete previa or not. She did meet with the nurse that day and she was advised to have pelvic rest and activity limitations. She has not seen Dr. Garcia since that ultrasound to review or plan future care. Her blood type is O+. She relates that she has not had any sexual intercourse or other issues prior to today. She has no other reason for having the vaginal bleeding that she can think of. This is also been, complicated by history of 2 prior miscarriages and use of progesterone through the initial portion of the . On physical exam currently vital signs are stable and afebrile. Heart regular, lungs clear, extremities are without pain. Abdomen is soft there is no evidence of contraction and heart tones are noted in the 150s on Doppler. No nonstress test is performed as she is only 25 and 6. I did personally do a sterile spec exam and there is no active bleeding coming from her cervical os. She does have some dark bleeding and she did have a relatively large amount of blood covering her scrubs. She and I have discussed current condition and with no current active bleeding and good heart tones will plan to monitor closely tonight and make sure that she has no further symptomatology. We did review that with placenta previa it is not uncommon to have intermittent vaginal bleeding but that we are going to be very closely monitoring her through tonight. Should everything remain stable then hopefully we will be able to use discharge her home tomorrow but we'll allow Dr. Garcia to do full assessment. I did want her that moving forward that it is likely that she will undergo a high risk evaluation so that at the very least she is known to that hospital should we have any further difficulties or problems prior to 35 weeks. A bedside ultrasound was performed today as well. She was unable to clearly document placenta previa with posterior placenta due to the head encroaching on the cervical region but she felt the cervix was closed on ultrasound and I declined having her do a transvaginal ultrasound. All the questions are answered for she and her this time and will plan close observational care tonight. Past Medical History Past Medical History: No Reported History Additional Past Medical History / Comment(s): miscarriage currently, History of Any Multi-Drug Resistant Organisms: None Reported Past Surgical History: Orthopedic Surgery Additional Past Surgical History / Comment(s): Cystoscopy, Lt knee arthroscopy, D&C Past Anesthesia/Blood Transfusion Reactions: No Reported Reaction Smoking Status: Never smoker - Past Family History Mother Family Medical History: No Reported History Medications and Allergies Home Medications Medication Instructions Recorded Confirmed Type Pnv No.95/Ferrous Fum/Folic AC 1 each PO DAILY 04/24/20 08/15/21 History [ Multivitamin Tablet] RX: Omeprazole [PriLOSEC] 1 tab PO DAILY 08/15/21 08/15/21 History Allergies Allergy/AdvReac Type Severity Reaction Status Date / Time citalopram [From Celexa] Allergy Rash/Hives Verified 08/15/21 16:45 dexamethasone [From Decadron] Allergy Unknown Verified 08/15/21 16:45 sertraline [From Zoloft] Allergy Rash/Hives Verified 08/15/21 16:45 Exam Osteopathic Statement: *. No significant issues noted on an osteopathic structural exam other than those noted in the History and Physical/Consult. Intake and Output 08/15/21 08/15/21 08/15/21 06:59 14:59 22:59 Other: Weight 92.079 kg
[2021-08-15 17:49] VITALS: RESP 16
--- NOTE | 2021-08-15 18:50 | US ---
EXAMINATION TYPE: US OB >= 14 wk fetus DATE OF EXAM: 08/15/2021 COMPARISON: US CLINICAL HISTORY: vaginal bleeding, placenta previa Painless, vaginal bleeding that started today TECHNIQUE: Transabdominal (TA) GESTATIONAL AGE / DATING Physician Established: (25 weeks/6 days) EDC: 11/22/2021 Dates by First Scan: (25 weeks/6 days) EDC: 11/22/2021 Dates by Current Scan: (26 weeks/6 days) EDC: 11/15/2021 SURVEY IUP: Single PLACENTA: Posterior PREVIA: There is shadowing at the level of the internal os which causes difficulty to visualize the entire placental tissue though it does appear that the placenta is in very close proximity to the in ternal os somewhat protruding cervix. HADLEY: 14.7 cm Normal CERVICAL LENGTH (transabdominal: norm > 3.0cm): 3.6 cm BIOMETRY PRESENTATION: Vertex BPD: 6.8 cm 27 weeks / 3 days HC: 25.1 cm 27 weeks / 2 days AC: 21.6 cm 26 weeks / 1 days FL: 4.8 cm 26 weeks / 2 days ESTIMATED WEIGHT IN GRAMS: 918 grams ESTIMATED WEIGHT IN LBS/OZ: 2 lbs. 0 oz. WEIGHT PERCENTAGE BASED ON ESTABLISHED DATES: 58% HC/AC: 1.16 FL/AC: 22 HEART RATE: [address] Watkins present during exam IMPRESSION: There is shadowing at the level of the internal os secondary to calvarial structures which makes it d ifficult to visualize the entire placental tissue though it does appear that the placenta is in very close proximity to the internal os if not slightly protruding into the cervix though complete adequat e visualization is suboptimal, the findings are concerning for marginal versus complete placenta prev ia. Recommend clinical and obstetrics and gynecology evaluation and consider repeat ultrasound if clinica lly indicated See additional sonographic findings in body of report.
--- NOTE | 2021-08-16 08:56 | P.DS ---
Providers Date of admission: 08/15/21 17:19 Expected date of discharge: 08/16/21 Attending physician: Irasema Garcia Primary care physician: Stated None - Discharge Diagnosis(es) (1) Placenta previa antepartum in second trimester Current Visit: Yes Status: Acute (2) Second trimester bleeding Current Visit: Yes Status: Acute Hospital Course: 31-year-old presented at 26 weeks complaining of vaginal bleeding. She had some bright red bleeding yesterday afternoon and came into the hospital. Speculum exam showed no active bleeding but there was some blood at the cervix. Ultrasound showed a possible low-lying placenta versus placenta previa. The bleeding did resolve and the baby showed category 1 heart tones. She was kept overnight to monitor her bleeding. Now there is just some brown blood on her pad, no active bleeding. She's not yvette or cramping. Category 1 heart tones remain. Patient will be discharged home to follow-up with me in one week. I'll also be scheduling her a consult with [facility]. Plan - Discharge Summary New Discharge Prescriptions: No Action Pnv No.95/Ferrous Fum/Folic AC [ Multivitamin Tablet] 1 each PO DAILY Omeprazole [PriLOSEC] 1 tab PO DAILY Discharge Medication List Pnv No.95/Ferrous Fum/Folic AC [ Multivitamin Tablet] 1 each PO DAILY 04/24/20 [History] Omeprazole [PriLOSEC] 1 tab PO DAILY 08/15/21 [History] Follow up Appointment(s)/Referral(s): Irasema Garcia DO [Doctor of Osteopathic Medicine] - 1 Week Discharge Disposition: HOME SELF-CARE
[2021-08-16 08:57] VITALS: BP 120/69; PULSE 82; TEMP 96.6
== END 2021-08-16 09:29 | disposition home or self-care (01) ==
LOC: FBPOP 16:27 → 4FBP 17:19
PROVIDERS: ADMIT Obstetrics & Gynecology; ATTEND Obstetrics & Gynecology
DX: O44.02 Complete placenta previa NOS or without hemorrhage, second trimester (principal); Z3A.26 26 weeks gestation of pregnancy; Z87.59 Personal history of other complications of pregnancy, childbirth and the puerperium; Z88.8 Allergy status to other drugs, medicaments and biological substances
CPT/HCPCS: 99213; 76805; G0378 ×2

== ENCOUNTER 2023-02-26 16:34 | Emergency (ER) | payer OTHER ==
[2023-02-26] MEDS ORDERED: ONDANSETRON 4 MG/2 ML VIAL IVP STA (17:40)
[2023-02-26] MEDS ORDERED: SODIUM CHLORIDE 0.9% 1,000 ML IV STA (17:40)
[2023-02-26] MEDS ORDERED: MORPHINE SULFATE 4 MG/ML SYRINGE IVP STA (17:40)
[2023-02-26] MEDS ORDERED: KETOROLAC 15 MG/ML 1 ML VIAL IVP STA (17:51)
[2023-02-26 18:35] LABS: Basophils % (A) 0 %; Eosinophils # (A) 0.1 k/uL (0-0.7); Eosinophils % (A) 1 %; HCT 43.8 % (34.0-46.0); HGB 14.6 gm/dL (11.4-16.0); Lymphocytes # (A) 1.6 k/uL (1.0-4.8); Lymphocytes % (A) 17 %; MCH 28.7 pg (25.0-35.0); MCHC 33.3 g/dL (31.0-37.0); MCV 86.3 fL (80.0-100.0); Mean Platelet Volume 7.2; Monocytes # (A) 0.3 k/uL (0-1.0); Monocytes % (A) 3 %; Neutrophils # (A) 7.4 k/uL (1.3-7.7); Neutrophils % (A) 77 %; Platelet Count 296 k/uL (150-450); RBC 5.08 m/uL (3.80-5.40); RDW 13.3 % (11.5-15.5); WBC 9.5 k/uL (3.8-10.6)
[2023-02-26 18:49] LABS: Appearance,Urine Cloudy (Clear); Bilirubin,Urine Negative (Negative); Blood,Urine Negative (Negative); Color,Urine Yellow; Glucose,Urine (UA) Negative (Negative); Ketones,Urine Negative (Negative); Leukocyte Esterase,Urine Moderate (Negative); Mucus,Urine Rare /hpf; Nitrite,Urine Negative (Negative); Protein,Urine Negative (Negative); RBC,Urine 1 /hpf (0-5); Specific Gravity,Urine 1.022 (1.001-1.035); Squamous Epithelial Cell,Urine 13 /hpf (0-4); Urobilinogen,Urine <2.0 mg/dL (<2.0); WBC,Urine 3 /hpf (0-5)
[2023-02-26 18:54] LABS: ALT 16 U/L (4-34); African American GFR (CKD) >90 (>60 ml/min/1.73 sqM); Albumin 4.3 g/dL (3.5-5.0); Amylase 93 U/L (30-110); Anion Gap 10 mmol/L; Blood Urea Nitrogen 14 mg/dL (7-17); Calcium 9.3 mg/dL (8.4-10.2); Carbon Dioxide 25 mmol/L (22-30); Chloride 102 mmol/L (98-107); Glucose 99 mg/dL (74-99); Lipase 190 U/L (23-300); Non-African American GFR(CKD) 83 (>60 ml/min/1.73 sqM); Sodium 137 mmol/L (137-145); Total Bilirubin 0.4 mg/dL (0.2-1.3); Total Protein 7.5 g/dL (6.3-8.2)
[2023-02-26 19:07] LABS: AST 25 U/L (14-36); Alkaline Phosphatase 92 U/L (38-126); Potassium 4.6 mmol/L (3.5-5.1)
--- NOTE | 2023-02-26 19:13 | CT ---
EXAMINATION TYPE: CT abdomen pelvis w con DATE OF EXAM: 02/26/2023 HISTORY: RLQ PAIN CT DLP: 1071mGycm Automated Exposure Control for Dose Reduction was Utilized. CONTRAST: CT scan of the abdomen and pelvis is performed without oral but with IV Contrast, patient injected wi th 100 mL of Isovue 300. COMPARISON: CT abdomen and pelvis December 15, 2019 FINDINGS: LUNG BASES: No significant abnormality is appreciated. LIVER/GB: Single tiny intraluminal gallstone axial image 28. PANCREAS: No significant abnormality is seen. SPLEEN: No significant abnormality is seen. ADRENALS: No significant abnormality is seen. KIDNEYS: No significant abnormality is seen. BOWEL: Suboptimal evaluation without enteric contrast. There is moderate to severe wall thickening wi th mild fat stranding at level of the terminal ileum on current study seen best coronal image 47 over a 6.0 cm length segment. No suspicious small or large bowel dilatation. UTERUS/ADNEXA: Somewhat small size uterus perhaps hysterectomy changes. LYMPH NODES: No greater than 1cm abdominal or pelvic lymph nodes are appreciated. OSSEOUS STRUCTURES: Moderate to severe disc space narrowing lumbosacral junction with mild spurring. OTHER: No significant additional abnormality is seen. IMPRESSION: 1. Terminal ileitis is present. Differential includes infectious, inflammatory, and ischemic etiologi es. Crohn's disease needs to be particularly considered in patient of this age. Clinical correlation and follow-up advised.
--- NOTE | 2023-02-26 19:53 | ED ---
Abdominal Pain HPI - General Chief Complaint: Abdominal Pain Stated Complaint: Abd pain Time Seen by Provider: 02/26/23 17:33 Source: patient Mode of arrival: ambulatory Limitations: no limitations - History of Present Illness Initial Comments: Patient is a 32-year-old female presenting with chief complaint of right lower quadrant pain that started today. States that pain comes in waves and is a cramping sensation. She admits to nausea with no vomiting. No fevers or chills. No diarrhea or constipation. No dysuria or hematuria. No back pain. Surgical history includes hysterectomy. - Related Data Home Medications Medication Instructions Recorded Confirmed Pnv No.95/Ferrous Fum/Folic AC 1 each PO DAILY 04/24/20 08/15/21 [ Multivitamin Tablet] Omeprazole 20 mg PO DAILY 09/23/21 09/23/21 Previous Rx's Medication Instructions Recorded Amoxic-Pot Clav 875-125Mg 1 tab PO BID 10 Days #20 tab 02/26/23 [Augmentin 875-125] Ketorolac [Toradol] 10 mg PO Q6HR #12 tab 02/26/23 predniSONE [Deltasone] 60 mg PO DAILY 5 Days #15 tab 02/26/23 Allergies Allergy/AdvReac Type Severity Reaction Status Date / Time citalopram [From Celexa] Allergy Rash/Hives Verified 09/23/21 07:34 dexamethasone [From Decadron] Allergy Unknown Verified 09/23/21 07:34 Review of Systems ROS Statement: Those systems with pertinent positive or pertinent negative responses have been documented in the HPI. ROS Other: All systems not noted in ROS Statement are negative. Past Medical History Past Medical History: No Reported History Additional Past Medical History / Comment(s): miscarriage currently, History of Any Multi-Drug Resistant Organisms: None Reported Past Surgical History: Orthopedic Surgery Additional Past Surgical History / Comment(s): Cystoscopy, Lt knee arthroscopy, D&C Past Anesthesia/Blood Transfusion Reactions: No Reported Reaction Past Psychological History: No Psychological Hx Reported Smoking Status: Never smoker Past Alcohol Use History: Occasional, Rare Past Drug Use History: None Reported - Past Family History Mother Family Medical History: No Reported History General Exam Limitations: no limitations General appearance: alert, in no apparent distress Head exam: Present: atraumatic, normocephalic, normal inspection Eye exam: Present: normal appearance, EOMI. Absent: scleral icterus, periorbital swelling Neck exam: Present: normal inspection, full ROM Respiratory exam: Present: normal lung sounds bilaterally. Absent: respiratory distress, wheezes, rales, rhonchi, stridor Cardiovascular Exam: Present: regular rate, normal rhythm, normal heart sounds. Absent: systolic murmur, diastolic murmur, rubs, gallop, clicks GI/Abdominal exam: Present: soft, tenderness (Right lower quadrant). Absent: distended, guarding, rebound, rigid Neurological exam: Present: alert, oriented X3, CN II-XII intact Psychiatric exam: Present: normal affect, normal mood Skin exam: Present: warm, dry, intact, normal color. Absent: rash Course Vital Signs 02/26/23 02/26/23 17:18 20:32 Temperature 98.1 F 98.0 F Pulse Rate 100 82 Respiratory 16 18 Rate Blood Pressure 130/79 103/71 O2 Sat by Pulse 97 97 Oximetry Medical Decision Making - Medical Decision Making Was pt. sent in by a medical professional or institution (, PA, TRAY SERVER, urgent care, hospital, or [facility]...) When possible be specific @ -No Did you speak to anyone other than the patient for history (EMS, parent, family, police, friend...)? What history was obtained from this source @ -No Did you review nursing and triage notes (agree or disagree)? Why? @ -I reviewed and agree with nursing and triage notes Were old charts reviewed (outside hosp., previous admission, EMS record, old EKG, old radiological studies, urgent care reports/EKG's, [facility] records)? Report findings @ -No old charts were reviewed Differential Diagnosis (chest pain, altered mental status, abdominal pain women, abdominal pain men, vaginal bleeding, weakness, fever, dyspnea, syncope, he adache, dizziness, GI bleed, back pain, seizure, CVA, palpatations, mental health, musculoskeletal)? @ -MDM Differential Abdominal Pain Women: Appendicitis, Cholecystitis, diverticulosis, ischemic bowel, pancreatitis, hepatitis, UTI, gastroenteritis, AAA, incarcerated hernia, bowel obstruction, constipation, inflammatory bowel, hepatitis, peptic ulcer disease, splenic infarction, perforated viscus, vulvitis, ovarian torsion, PID, kidney stone, placenta abruption... This is not meant to be an all-inclusive list EKG interpreted by me (3pts min.). @ -As above X-rays interpreted by me (1pt min.). @ -None done CT interpreted by me (1pt min.). @ -CT shows terminal ileitis U/S interpreted by me (1pt. min.). @ -None done What testing was considered but not performed or refused? (CT, X-rays, U/S, labs)? Why? @ -None What meds were considered but not given or refused? Why? @ -None Did you discuss the management of the patient with other professionals (professionals i.e. , PA, TRAY SERVER, lab, RT, psych nurse, social media community manager, vice admiral, teacher, third officer, wrapper caser)? Give summary @ -No Was smoking cessation discussed for >3mins.? @ -No Was critical care preformed (if so, how long)? @ -No Were there social determinants of health that impacted care today? How? (Homelessness, low income, unemployed, alcoholism, drug addiction, transportation, low edu. Level, literacy, decrease access to med. care, assisted, rehab)? @ -No Was there de-escalation of care discussed even if they declined (Discuss DNR or withdrawal of care, Hospice)? DNR status @ -No What co-morbidities impacted this encounter? (DM, HTN, Smoking, COPD, CAD, Cancer, CVA, ARF, Chemo, Hep., AIDS, mental health diagnosis, sleep apnea, morbid obesity)? @ -None Was patient admitted / discharged? Hospital course, mention meds given and r oute, prescriptions, significant lab abnormalities, going to OR and other pertinent info. @ -Patient is a 32-year-old female presenting with chief complaint of right lower quadrant pain that started today. On physical examination there is tenderness over the right lower quadrant. Lab work shows no leukocytosis or anemia. CMP is unremarkable. Urine shows signs of contamination. CT shows terminal ileitis. Patient states her pain is dramatically improved after Toradol. She would like to be discharged home I believe this is reasonable. She is started on Augmentin and prednisone, provided with prescription for ketorolac. Instructed to follow up with gastroenterology. Follow-up with PCP. Report back to ER with any new or worsening symptoms. Discussed return parameters and answered all questions. Patient conveyed verbal understanding and agreed to the plan. I discussed this case in detail with my attending Dr. Jenkins Undiagnosed new problem with uncertain prognosis? @ -No Drug Therapy requiring intensive monitoring for toxicity (Heparin, Nitro, Insulin, Cardizem)? @ -No Were any procedures done? @ -No Diagnosis/symptom? @ -Terminal ileitis Acute, or Chronic, or Acute on Chronic? @ -acute Uncomplicated (without systemic symptoms) or Complicated (systemic symptoms)? @ -Uncomplicated Side effects of treatment? @ -No Exacerbation, Progression, or Severe Exacerbation? @ -No Poses a threat to life or bodily function? How? (Chest pain, [place], CO, pneumonia, PE, COPD, DKA, ARF, appy, cholecystitis, CVA, Diverticulitis, Homicidal, Suicidal, threat to staff... and all critical care pts) @ -No - Lab Data Result diagrams: 02/26/23 17:40 02/26/23 17:40 Lab Results 02/26/23 02/26/23 02/26/23 Range/Units 17:40 17:40 17:40 WBC 9.5 (3.8-10.6) k/uL RBC 5.08 (3.80-5.40) m/uL Hgb 14.6 (11.4-16.0) gm/dL Hct 43.8 (34.0-46.0) % MCV 86.3 (80.0-100.0) fL MCH 28.7 (25.0-35.0) pg MCHC 33.3 (31.0-37.0) g/dL RDW 13.3 (11.5-15.5) % Plt Count 296 (150-450) k/uL MPV 7.2 Neutrophils % 77 % Lymphocytes % 17 % Monocytes % 3 % Eosinophils % 1 % Basophils % 0 % Neutrophils # 7.4 (1.3-7.7) k/uL Lymphocytes # 1.6 (1.0-4.8) k/uL Monocytes # 0.3 (0-1.0) k/uL Eosinophils # 0.1 (0-0.7) k/uL Basophils # 0.0 (0-0.2) k/uL Sodium 137 (137-145) mmol/L Potassium 4.6 (3.5-5.1) mmol/L Chloride 102 (98-107) mmol/L Carbon Dioxide 25 (22-30) mmol/L Anion Gap 10 mmol/L BUN 14 (7-17) mg/dL Creatinine 0.91 (0.52-1.04) mg/dL Est GFR (CKD-EPI)AfAm >90 (>60 ml/min/1.73 sqM) Est GFR (CKD-EPI)NonAf 83 (>60 ml/min/1.73 sqM) Glucose 99 (74-99) mg/dL Plasma Lactic Acid Moiz (0.7-2.0) mmol/L Calcium 9.3 (8.4-10.2) mg/dL Total Bilirubin 0.4 (0.2-1.3) mg/dL AST 25 (14-36) U/L ALT 16 (4-34) U/L Alkaline Phosphatase 92 (38-126) U/L Total Protein 7.5 (6.3-8.2) g/dL Albumin 4.3 (3.5-5.0) g/dL Amylase 93 (30-110) U/L Lipase 190 (23-300) U/L Urine Color Yellow Urine Appearance Cloudy H (Clear) Urine pH 7.0 (5.0-8.0) Ur Specific [place] 1.022 (1.001-1.035) Urine Protein Negative (Negative) Urine Glucose (UA) Negative (Negative) Urine Ketones Negative (Negative) Urine Blood Negative (Negative) Urine Nitrite Negative (Negative) Urine Bilirubin Negative (Negative) Urine Urobilinogen <2.0 (<2.0) mg/dL Ur Leukocyte Esterase Moderate H (Negative) Urine RBC 1 (0-5) /hpf Urine WBC 3 (0-5) /hpf Ur Squamous Epith Cells 13 H (0-4) /hpf Urine Mucus Rare H (None) /hpf 02/26/23 Range/Units 17:40 WBC (3.8-10.6) k/uL RBC (3.80-5.40) m/uL Hgb (11.4-16.0) gm/dL Hct (34.0-46.0) % MCV (80.0-100.0) fL MCH (25.0-35.0) pg MCHC (31.0-37.0) g/dL RDW (11.5-15.5) % Plt Count (150-450) k/uL MPV Neutrophils % % Lymphocytes % % Monocytes % % Eosinophils % % Basophils % % Neutrophils # (1.3-7.7) k/uL Lymphocytes # (1.0-4.8) k/uL Monocytes # (0-1.0) k/uL Eosinophils # (0-0.7) k/uL Basophils # (0-0.2) k/uL Sodium (137-145) mmol/L Potassium (3.5-5.1) mmol/L Chloride (98-107) mmol/L Carbon Dioxide (22-30) mmol/L Anion Gap mmol/L BUN (7-17) mg/dL Creatinine (0.52-1.04) mg/dL Est GFR (CKD-EPI)AfAm (>60 ml/min/1.73 sqM) Est GFR (CKD-EPI)NonAf (>60 ml/min/1.73 sqM) Glucose (74-99) mg/dL Plasma Lactic Acid Moiz 0.8 (0.7-2.0) mmol/L Calcium (8.4-10.2) mg/dL Total Bilirubin (0.2-1.3) mg/dL AST (14-36) U/L ALT (4-34) U/L Alkaline Phosphatase (38-126) U/L Total Protein (6.3-8.2) g/dL Albumin (3.5-5.0) g/dL Amylase (30-110) U/L Lipase (23-300) U/L Urine Color Urine Appearance (Clear) Urine pH (5.0-8.0) Ur Specific [place] (1.001-1.035) Urine Protein (Negative) Urine Glucose (UA) (Negative) Urine Ketones (Negative) Urine Blood (Negative) Urine Nitrite (Negative) Urine Bilirubin (Negative) Urine Urobilinogen (<2.0) mg/dL Ur Leukocyte Esterase (Negative) Urine RBC (0-5) /hpf Urine WBC (0-5) /hpf Ur Squamous Epith Cells (0-4) /hpf Urine Mucus (None) /hpf Disposition Clinical Impression: Terminal ileitis Disposition: HOME SELF-CARE Condition: Good Instructions (If sedation given, give patient instructions): Colitis (ED) Additional Instructions: Follow-up with PCP and GI. Report back to ER with any new or worsening symptoms. Take medication as prescribed. Prescriptions: Amoxic-Pot Clav 875-125Mg [Augmentin 875-125] 1 tab PO BID 10 Days #20 tab predniSONE [Deltasone] 60 mg PO DAILY 5 Days #15 tab Ketorolac [Toradol] 10 mg PO Q6HR #12 tab Is patient prescribed a controlled substance at d/c from ED?: No Referrals: Juan J Moreno MD [Primary Care Provider] - 1-2 days Sherine Ellis MD [STAFF PHYSICIAN] - 1-2 days Time of Disposition: 19:53
[2023-02-26 20:34] VITALS: BP 103/71; PULSE 82; RESP 18; TEMP 98
== END 2023-02-26 20:34 | disposition home or self-care (01) ==
LOC: EC 16:34
DX: K50.00 Crohn's disease of small intestine without complications (principal); Z88.8 Allergy status to other drugs, medicaments and biological substances
CPT/HCPCS: 36415; 80053; 82150; 83605; 83690; 85025; 81001; 74177; 99284; 96374; 96375; 96361; J2405; J1885; Q9967

== ENCOUNTER 2023-04-18 12:49 | Day surgery (SDC) | payer OTHER ==
[2023-04-11 15:38] VITALS: BMI 28.0
[2023-04-18] MEDS ORDERED: LACTATED RINGERS 1,000 ML IV ONE ×2 (13:35)
[2023-04-18 13:41] VITALS: TEMP 98.3
[2023-04-18] MEDS ORDERED: LACTATED RINGERS 1,000 ML IV SCH (13:41)
[2023-04-18] MEDS ORDERED: PROPOFOL 10 MG/ML 20 ML VIAL IV ONE (14:45)
--- NOTE | 2023-04-18 15:04 | P.PCN ---
Date of Procedure: 04/18/23 Procedure(s) Performed: BRIEF HISTORY: Patient is a 32-year-old pleasant female scheduled for an elective colonoscopy as a part of evaluation of right lower quadrant abdominal pain and altered bowel movements for the last 1-2 months duration. She went to the emergency room and had a CT of abdomen and pelvis done that showed thickening of the terminal ileum suspicious for Crohn's ileitis. PROCEDURE PERFORMED: Colonoscopy with biopsy. PREOPERATIVE DIAGNOSIS: Right lower quadrant abdominal pain and diarrhea for 2 months duration. Recent CAT scan showed thickening of the terminal ileum. IV sedation per Anesthesia. PROCEDURE: After informed consent was obtained, the patient, was brought into [facility] endoscopy unit. IV sedation was administered by Anesthesia under continuous monitoring. Digital rectal examination was normal. Initially the Olympus CF-160 flexible video colonoscope was then inserted in the rectum, gradually advanced into the cecum without any difficulty. Careful examination was performed as the scope was gradually being withdrawn. Ileocecal valve and the appendiceal orifice were visualized and appeared normal. Prep was excellent. There ulcerations noted on the ileocecal valve which was biopsied. I attempted at intubating the terminal ileum was significantly narrowed. However the terminal ileum was somewhat visualized and revealed superficial ulcerations noted with some cobblestoning of the mucosa and biopsies were done from the terminal ileum. Mucosa of the cecum, ascending colon, transverse colon, descending colon, sigmoid colon, and rectum appeared normal. Scattered diffuse pseudopolyps noted in the descending colon but no active colitis noted and biopsies were done from this area. Retroflexion was performed in the rectum and no lesions were seen. The patient tolerated the procedure well. IMPRESSION: Narrative of the terminal ileum with multiple ulcerations consistent with Crohn's ileitis Ulcerations of the ileocecal valve status post biopsy Scattered pseudopolyps in the descending colon status post biopsy Colon appeared normal RECOMMENDATIONS: Findings of this examination were discussed with the patient as well as her family. She was advised to follow with the biopsy results. She'll be seen in office next week..
[2023-04-18 15:25] VITALS: BP 102/72; PULSE 67; RESP 16
== END 2023-04-18 15:54 | disposition home or self-care (01) ==
LOC: ORWHC2ENDO 12:49
PROVIDERS: ATTEND Internal Medicine Gastroenterology
DX: K50.00 Crohn's disease of small intestine without complications (principal); K52.9 Noninfective gastroenteritis and colitis, unspecified; K63.3 Ulcer of intestine; K21.9 Gastro-esophageal reflux disease without esophagitis; Z79.899 Other long term (current) drug therapy; Z87.891 Personal history of nicotine dependence
CPT/HCPCS: 45380; J2704; 88305